=== PATIENT | male | born 1975 | race Hispanic/Latino ===

== ENCOUNTER 2021-03-05 21:09 | Inpatient (IN) | payer SELFPAY ==
[~2021-03-05] VITALS: Ht 175.3 cm; Wt 84.4 kg
[2021-03-05 21:13] VITALS: BP 146/91
[2021-03-05 21:29] LABS: BASOPHILS % (AUTO) 0.6 % (0.0-5.0); EOSINOPHILS % (AUTO) 1.8 % (0.0-8.0); HEMATOCRIT 52.5 % (42-54); LYMPHOCYTES % (AUTO) 18.6 % (21.0-51.0); MEAN CORPUSCULAR HEMOGLOBIN 29.8 pg (27.0-33.0); MEAN CORPUSCULAR HGB CONC 33.9 g/dL (32.0-36.0); MEAN CORPUSCULAR VOLUME 87.8 fL (79-99); MONOCYTES % (AUTO) 7.6 % (3.0-13.0); NEUTROPHILS % (AUTO) 70.5 % (40.0-77.0); PLATELET COUNT (AUTO) 279 K/uL (130-400); RED BLOOD CELL COUNT(AUTO) 5.98 MIL/uL (4.50-6.20); RED CELL DISTRIBUTION WIDTH 14.9 % (11.0-15.5); WHITE BLOOD COUNT (AUTO) 11.3 K/uL (4.8-10.8)
[2021-03-05 21:40] LABS: CREATININE 1.3 mg/dL (0.5-1.5); POTASSIUM 4.1 mmol/L (3.5-5.1)
[2021-03-05 21:45] LABS: ALBUMIN 3.4 g/dL (3.5-5.0); BILIRUBIN,TOTAL 0.4 mg/dL (0.2-1.0); TOTAL PROTEIN, SERUM 7.5 g/dL (6.0-8.3)
[2021-03-05] MEDS ORDERED: ORPHENADRINE CITRATE 30 MG/ML ML IV ONE (22:00)
[2021-03-05 22:25] VITALS: BP 140/84
[2021-03-05 22:26] LABS: CRP QUANTITATIVE < 2.00 mg/L (0.00-9.0)
[2021-03-05 23:01] LABS: CREATINE KINASE, TOTAL 1500 U/L (21-232)
[2021-03-05] MEDS ORDERED: LACTATED RINGERS 1000ML 1,000 ML IV ONE ×2 (23:05)
[2021-03-05 23:11] VITALS: BP 132/68
[2021-03-05] MEDS ORDERED: LACTATED RINGERS 1000ML IV ONE (23:30)
[2021-03-05 23:33] LABS: APPEARANCE,URINE Clear (CLEAR); BILIRUBIN,URINE Negative (NEGATIVE); COLOR,URINE Yellow (YELLOW); GLUCOSE, URINE (UA) Negative (NEGATIVE); KETONES,URINE Trace mg/dL (NEGATIVE); LEUKOCYTE ESTERASE ,URINE Negative (NEGATIVE); NITRATE,URINE Negative (NEGATIVE); OCCULT BLOOD,URINE Negative (NEGATIVE); PROTEIN,URINE Negative (NEGATIVE)
[2021-03-05 23:43] LABS: AMPHET/METH SCREEN,URINE NEGATIVE (NEGATIVE); BARBITURATE SCREEN, URINE NEGATIVE (NEGATIVE); BENZODIAZEPINES SCREEN,URINE NEGATIVE (NEGATIVE); CANNABINOID SCREEN,URINE POSITIVE (NEGATIVE); COCAINE SCREEN,URINE NEGATIVE (NEGATIVE); OPIATE SCREEN,URINE NEGATIVE (NEGATIVE); PHENCYCLIDINE SCREEN,URINE NEGATIVE (NEGATIVE)
[2021-03-06] VITALS (7 sets, daily range): BP systolic 119–149; BP diastolic 67–95
[2021-03-06] MEDS ORDERED: TEMAZEPAM 15 MG CAPSULE PO ONE ×2 (01:00→23:00)
[2021-03-06] MEDS ORDERED: NITROGLYCERIN 0.4 MG SL TAB SL PRN (02:30)
[2021-03-06] MEDS ORDERED: LACTULOSE 20 GM/30 ML UDCUP PO PRN (02:30)
[2021-03-06] MEDS ORDERED: ONDANSETRON 4MG INJ IV PRN (02:30)
[2021-03-06] MEDS ORDERED: ACETAMINOPHEN 325 MG TAB PO PRN ×2 (02:30)
[2021-03-06 03:04] LABS: MYOGLOBIN 111 ng/mL (10-92); TROPONIN I < 0.04 ng/mL (0.00-0.06)
[2021-03-06 03:19] LABS: CREATINE KINASE, TOTAL 1143 U/L (21-232)
[2021-03-06] MEDS: 0.9%NACL 1000ML 1,000 ML IV SCH ×3 (03:41→13:58)
[2021-03-06 05:31] LABS: HEMATOCRIT 49.3 % (42-54); MEAN CORPUSCULAR HEMOGLOBIN 29.5 pg (27.0-33.0); MEAN CORPUSCULAR HGB CONC 33.5 g/dL (32.0-36.0); PLATELET COUNT (AUTO) 254 K/uL (130-400); RED CELL DISTRIBUTION WIDTH 14.7 % (11.0-15.5); WHITE BLOOD COUNT (AUTO) 8.8 K/uL (4.8-10.8)
[2021-03-06 05:54] LABS: BASOPHILS % (MANUAL) 2 % (0-2); EOSINOPHILS % (MANUAL) 3 % (1-6); LYMPHOCYTES % (MANUAL) 30 % (22-44); MAN.DIFF COMMENT-IMPRESSION MANUAL DIFFERENTIAL; MONOCYTES % (MANUAL) 11 % (2-9); SEGMENTED NEUTROPHILS % 54 % (40-70)
[2021-03-06 06:08] LABS: ALANINE AMINOTRANSFERASE 43 U/L (12-78); ALBUMIN 2.8 g/dL (3.5-5.0); ASPARTATE AMINOTRANSFERASE 37 U/L (10-37); BILIRUBIN,TOTAL 0.4 mg/dL (0.2-1.0); CARBON DIOXIDE 26 mmol/L (21-32); CHLORIDE 107 mmol/L (101-111); CHOLESTEROL 215 mg/dL (<200); CREATININE 1.1 mg/dL (0.5-1.5); GLOMERULAR FILTR. RATE CALC 78 mL/min (>60); GLUCOSE,RANDOM 93 mg/dL (70-105); HDL CHOLESTEROL 32 mg/dL (29-71); LDL DIRECT 167 mg/dL (0-99); MYOGLOBIN 93 ng/mL (10-92); POTASSIUM 3.9 mmol/L (3.5-5.1); SODIUM SERUM 140 mmol/L (136-145); TOTAL PROTEIN, SERUM 6.4 g/dL (6.0-8.3); TRIGLYCERIDES 72 mg/dL (30-200); TROPONIN I < 0.04 ng/mL (0.00-0.06); UREA NITROGEN, BLOOD 13 mg/dL (7-18)
[2021-03-06 06:17] LABS: CREATINE KINASE, TOTAL 1063 U/L (21-232)
[2021-03-06] MEDS: FAMOTIDINE 20MG TAB PO SCH ×2 (09:28→19:19)
[2021-03-06] MEDS: ENOXAPARIN SODIUM 30 MG/0.3 ML SQ SCH (09:29)
[2021-03-06 12:25] LABS: MYOGLOBIN 59 ng/mL (10-92); TROPONIN I < 0.04 ng/mL (0.00-0.06)
[2021-03-06 12:26] LABS: CREATINE KINASE, TOTAL 927 U/L (21-232)
[2021-03-06 18:43] LABS: MYOGLOBIN 58 ng/mL (10-92); TROPONIN I < 0.04 ng/mL (0.00-0.06)
[2021-03-06 18:45] LABS: CREATINE KINASE, TOTAL 783 U/L (21-232)
[2021-03-06] MEDS ORDERED: TEMAZEPAM 15 MG CAPSULE ONE (22:39)
[2021-03-07 04:11] VITALS: BP 161/93
[2021-03-07] MEDS: 0.9%NACL 1000ML 1,000 ML IV SCH ×2 (05:36→14:39)
[2021-03-07 07:18] LABS: MYOGLOBIN 468 ng/mL (10-92)
[2021-03-07 07:20] LABS: CREATINE KINASE, TOTAL 669 U/L (21-232)
[2021-03-07 08:00] VITALS: BP 153/81
[2021-03-07] MEDS: FAMOTIDINE 20MG TAB PO SCH (09:04)
[2021-03-07] MEDS: ENOXAPARIN SODIUM 30 MG/0.3 ML SQ SCH (09:05)
[2021-03-07] MEDS ORDERED: HYDROXYZINE 25 MG TABLET PO PRN (11:30)
[2021-03-07 12:00] VITALS: BP 161/81
[2021-03-07 16:00] VITALS: BP 145/76
[2021-03-07] MEDS ORDERED: HYDR-3421 PO (17:30)
[2021-03-07] MEDS ORDERED: TRAZ-185 PO (17:30)
== END 2021-03-07 19:05 | disposition home or self-care (01) | DRG 558 ==
LOC: EDH 22:09 → EDHIP 22:10 → 3BH 03-06 02:20 → UNDODISIN 03-06 18:55
PROVIDERS: ADMIT Internal Medicine; ATTEND Internal Medicine
DX: M62.82 Rhabdomyolysis (principal); G47.00 Insomnia, unspecified; I10 Essential (primary) hypertension; F12.10 Cannabis abuse, uncomplicated; F41.1 Generalized anxiety disorder; T73.3XXA Exhaustion due to excessive exertion, initial encounter; X58.XXXA Exposure to other specified factors, initial encounter; I69.30 Unspecified sequelae of cerebral infarction; Z79.899 Other long term (current) drug therapy
CPT/HCPCS: 36415; 70360; 71045; 73030; 80053; 80061; 80305; 81003; 82550; 82948; 83735; 83874; 84484; 85025; 86140; 93005; G0378; J1650; J7030; J7120